=== PATIENT | male | born 1955 | race Caucasian/White ===

== ENCOUNTER 2016-09-28 01:47 | Emergency (ER) | payer OTHER ==
[~2016-09-28] VITALS: Ht 172.7 cm; Wt 85.0 kg
[~2016-09-28 01:47] MED LIST: CYCL-36 PO; IBUP-232 PO; LISI-363 PO; TRAM50 PO; Z.0.NO CURRENT MEDS
[2016-09-28 01:48] VITALS: BP 150/113; PULSE 74; RESP 22; TEMP 98.2; O2SAT 99
[2016-09-28] MEDS ORDERED: SODIUM CHLOR 0.9% 1000 ML INJ 1,000 ML IV ONE (01:52)
[2016-09-28] MEDS ORDERED: LISI-515 PO (01:54)
[2016-09-28 01:55] VITALS: O2SAT 100
[2016-09-28] MEDS ORDERED: SODIUM CHLORIDE 0.9% FLUSH 10 ML FLUSH IVF PRN (02:00)
[2016-09-28 02:22] LABS: AUTOMATED NEUTROPHIL # 6.8 TH/MM3 (1.8-7.7); BASOPHIL # 0.1 TH/MM3 (0-0.2); BASOPHIL % 0.7 % (0.0-2.0); EOSINOPHIL # 0.1 TH/MM3 (0-0.4); EOSINOPHIL % 0.9 % (0.0-4.0); HEMATOCRIT 43.2 % (39.0-51.0); HEMO FLAGS DIFF FINAL; LYMPH % 26.2 % (9.0-44.0); LYMPHOCYTE # 2.8 TH/MM3 (1.0-4.8); MEAN CELL VOLUME 93.1 FL (80.0-100.0); MEAN CORPUSCULAR HEMOGLOBIN 31.8 PG (27.0-34.0); MEAN CORPUSCULAR HGB CONC 34.2 % (32.0-36.0); MONO % 7.8 % (0.0-8.0); NEUT % 64.4 % (16.0-70.0); PLATELET COUNT 512 TH/MM3 (150-450); RED BLOOD COUNT 4.64 MIL/MM3 (4.50-5.90); RED CELL DISTRIBUTION WIDTH 14.5 % (11.6-17.2); WHITE BLOOD COUNT 10.6 TH/MM3 (4.0-11.0)
[2016-09-28 02:25] LABS: ALT (GPT) 21 U/L (12-78); ANION GAP 8 MEQ/L (5-15); APTT (PATIENT) 25.6 SEC (24.3-30.1); AST (GOT) 17 U/L (15-37); BICARBONATE 26.5 MEQ/L (21.0-32.0); BLOOD UREA NITROGEN 32 MG/DL (7-18); CHLORIDE 109 MEQ/L (98-107); GLOMERULAR FILTRATION RATE 31 ML/MIN (>89); INTERNATIONAL NORMALIZED RATIO 1.1 RATIO; MAGNESIUM 2.2 MG/DL (1.5-2.5); POTASSIUM 4.1 MEQ/L (3.5-5.1); PROTHROMBIN TIME - PATIENT 11.7 SEC (9.8-11.6); SODIUM (NA) 143 MEQ/L (136-145)
--- NOTE | 2016-09-28 02:27 | RADRPT ---
EXAM DATE/TIME: 09/28/2016 02:15 [place] COMPARISON: No previous studies available for comparison. INDICATIONS : Syncopal episode. MEDICAL HISTORY : Chronic obstructive pulmonary disease. SURGICAL HISTORY : None. ENCOUNTER: Initial ACUITY: 1 day PAIN SCORE: 0/10 LOCATION: Bilateral chest FINDINGS: A single view of the chest demonstrates the lungs to be symmetrically aerated without evidence of mas s, infiltrate or effusion. There is uncoiling and ectasia of the thoracic abdominal aorta. Heart size is normal. 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 Osseous structures are otherw ise intact CONCLUSION: 1. Tortuosity of the thoracic aorta. 2. Lungs are clear. 3. 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 Ashu Turcios MD on September 28, 2016 at 2:24 Board Certified Radiologist. This report was verified electronically.
[2016-09-28 02:29] LABS: ALKALINE PHOSPHATASE 53 U/L (45-117); CREATINE KINASE 138 U/L (39-308); TOTAL BILIRUBIN ADULT 0.4 MG/DL (0.2-1.0)
[2016-09-28 02:42] LABS: CKMB 1.6 NG/ML (0.5-3.6)
--- NOTE | 2016-09-28 03:01 | PD ---
HPI Chief Complaint: Syncope/Near-Syncope Time Seen by Provider: 02:25 Travel History International Travel<30 days: No Contact w/Intl Traveler<30days: No Traveled to known affect area: No History of Present Illness HPI Patient is a 60-year-old male who presents to emergency room after a near syncopal episode today. 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 Patient reports that he sat down on the ground as he felt lightheaded and dizzy. Reports that the last this had happened, he passed out and hit his head. Reports that he did not lose any consciousness tonight. Patient reports that he feels lightheaded and dizzy at this time, denies any headache. Patient reports that he has been working outside and has been drinking plenty of fluids, denies any chest pain or shortness of breath. Patient was given 500 mL of normal saline by EMS, reports that he is feeling better after normal saline was given to him. BG 108 by EMS. Patient with no abdominal pain, nausea or vomiting at this time. PFSH Past Medical History Arthritis: Yes Hiatal Hernia: Yes (REPAIRED) Hypertension: Yes Past Surgical History Abdominal Surgery: Yes (HIATAL HERNIA REP) Neurologic Surgery: Yes (ELBOW NERVE REP) Social History Alcohol Use: Yes Tobacco Use: Yes (1 PPD) Substance Use: No Allergies-Medications (Allergen,Severity, Reaction): Coded Allergies: No Known Allergies (Unverified , 09/28/16) Reported Meds & Prescriptions Reported Meds & Active Scripts Active Reported Pantoprazole (Pantoprazole Sodium) 40 Mg Tab 40 Mg PO DAILY Hydrochlorothiazide 25 Mg Tab 25 Mg PO DAILY Aspirin 81 Mg Chew 81 Mg CHEW DAILY Carvedilol 12.5 Mg Tab 12.5 Mg PO BID Amlodipine (Amlodipine Besylate) 10 Mg Tab 10 Mg PO DAILY Lisinopril 20 Mg Tab 20 Mg PO DAILY Review of Systems General / Constitutional: No: Fever Eyes: No: Visual changes HENT: Positive: Lightheadedness, No: Headaches Cardiovascular: No: Chest Pain or Discomfort Respiratory: No: Shortness of Breath Gastrointestinal: No: Nausea, Vomiting, Abdominal Pain Genitourinary: No: Dysuria Musculoskeletal: No: Pain Skin: No Rash Neurologic: Positive: Dizziness, No: Weakness Psychiatric: No: Depression Endocrine: No: Polydipsia Hematologic/Lymphatic: No: Easy Bruising Physical Exam Narrative GENERAL: No acute distress, nontoxic SKIN: Focused skin assessment warm/dry. HEAD: Atraumatic. Normocephalic. EYES: Pupils equal and round. No scleral icterus. No injection or drainage. ENT: No nasal bleeding or discharge. Mucous membranes pink and moist. NECK: Trachea midline. No JVD. CARDIOVASCULAR: Regular rate and rhythm. No murmur appreciated. RESPIRATORY: No accessory muscle use. Clear to auscultation. Breath sounds equal bilaterally. GASTROINTESTINAL: Abdomen soft, non-tender, nondistended. Hepatic and splenic margins not palpable. MUSCULOSKELETAL: No obvious deformities. No clubbing. No cyanosis. No edema. NEUROLOGICAL: Awake and alert. No obvious cranial nerve deficits. Motor grossly within normal limits. Normal speech. PSYCHIATRIC: Appropriate mood and affect; insight and judgment normal. Data Data Last Documented VS Vital Signs Date Time Temp Pulse Resp B/P Pulse Ox O2 Delivery O2 Flow Rate FiO2 09/28/16 03:42 84 18 130/99 95 Room Air 09/28/16 01:48 98.2 Orders Electrocardiogram (09/28/16 01:52) Complete Blood Count With Diff (09/28/16 01:52) Comprehensive Metabolic Panel (09/28/16 01:52) Magnesium (Mg) (09/28/16 01:52) B-Type Natriuretic Peptide (09/28/16 01:52) Ckmb (Isoenzyme) Profile (09/28/16 01:52) Troponin I (09/28/16 01:52) Act Partial Throm Time (Ptt) (09/28/16 01:52) Prothrombin Time / Inr (Pt) (09/28/16 01:52) Urinalysis - C+S If Indicated (09/28/16 01:52) Chest, Single Ap (09/28/16 01:52) Blood Glucose (09/28/16 01:52) Ecg Monitoring (09/28/16 01:52) Iv Access Insert/Monitor (09/28/16 01:52) Oximetry (09/28/16 01:52) Sodium Chloride 0.9% Flush (Ns Flush) (09/28/16 02:00) Sodium Chlor 0.9% 1000 Ml Inj (Ns 1000 M (09/28/16 01:52) CKMB (09/28/16 01:54) CKMB% (09/28/16 01:54) Labs Laboratory Tests Test 09/28/16 01:54 White Blood Count 10.6 TH/MM3 Red Blood Count 4.64 MIL/MM3 Hemoglobin 14.8 GM/DL Hematocrit 43.2 % Mean Corpuscular Volume 93.1 FL Mean Corpuscular Hemoglobin 31.8 PG Mean Corpuscular Hemoglobin 34.2 % Concent Red Cell Distribution Width 14.5 % Platelet Count 512 TH/MM3 Mean Platelet Volume 7.7 FL Neutrophils (%) (Auto) 64.4 % Lymphocytes (%) (Auto) 26.2 % Monocytes (%) (Auto) 7.8 % Eosinophils (%) (Auto) 0.9 % Basophils (%) (Auto) 0.7 % Neutrophils # (Auto) 6.8 TH/MM3 Lymphocytes # (Auto) 2.8 TH/MM3 Monocytes # (Auto) 0.8 TH/MM3 Eosinophils # (Auto) 0.1 TH/MM3 Basophils # (Auto) 0.1 TH/MM3 CBC Comment DIFF FINAL Differential Comment Prothrombin Time 11.7 SEC Prothromb Time International 1.1 RATIO Ratio Activated Partial 25.6 SEC Thromboplast Time Sodium Level 143 MEQ/L Potassium Level 4.1 MEQ/L Chloride Level 109 MEQ/L Carbon Dioxide Level 26.5 MEQ/L Anion Gap 8 MEQ/L Blood Urea Nitrogen 32 MG/DL Creatinine 2.21 MG/DL Estimat Glomerular Filtration 31 ML/MIN Rate Random Glucose 84 MG/DL Calcium Level 8.7 MG/DL Magnesium Level 2.2 MG/DL Total Bilirubin 0.4 MG/DL Aspartate Amino Transf 17 U/L (AST/SGOT) Alanine Aminotransferase 21 U/L (ALT/SGPT) Alkaline Phosphatase 53 U/L Total Creatine Kinase 138 U/L Creatine Kinase MB 1.6 NG/ML Troponin I LESS THAN 0.02 NG/ML B-Type Natriuretic Peptide 8 PG/ML Total Protein 6.7 GM/DL Albumin 3.7 GM/DL [facility] Medical Decision Making Medical Screen Exam Complete: Yes Emergency Medical Condition: Yes Interpretation(s) EKG at 0154: NSR at 71bpm, qt/qtc: 362/384, pvc's, no acute st or t wave changes Vital Signs Date Time Temp Pulse Resp B/P Pulse Ox O2 Delivery O2 Flow Rate FiO2 09/28/16 01:55 100 Room Air 09/28/16 01:48 98.2 74 22 150/113 99 Differential Diagnosis Differential includes arrhythmia, electrolyte abnormality, dehydration, ACS Narrative Course Patient is a 60-year-old male who presents to ER with c/o of near syncopal episode while at work today. Patient was present electronic device monitor upon arrival to emergency room. EKG was obtained. Plan to obtain lab work, x-ray of the chest, will give IV fluids and monitor patient. Vital Signs Date Time Temp Pulse Resp B/P Pulse Ox O2 Delivery O2 Flow Rate FiO2 09/28/16 03:42 84 18 130/99 95 Room Air 09/28/16 01:55 100 Room Air 09/28/16 01:48 98.2 74 22 150/113 99 Laboratory Tests Test 09/28/16 01:54 White Blood Count 10.6 TH/MM3 (4.0-11.0) Red Blood Count 4.64 MIL/MM3 (4.50-5.90) Hemoglobin 14.8 GM/DL (13.0-17.0) Hematocrit 43.2 % (39.0-51.0) Mean Corpuscular Volume 93.1 FL (80.0-100.0) Mean Corpuscular Hemoglobin 31.8 PG (27.0-34.0) Mean Corpuscular Hemoglobin 34.2 % Concent (32.0-36.0) Red Cell Distribution Width 14.5 % (11.6-17.2) Platelet Count 512 TH/MM3 (150-450) Mean Platelet Volume 7.7 FL (7.0-11.0) Neutrophils (%) (Auto) 64.4 % (16.0-70.0) Lymphocytes (%) (Auto) 26.2 % (9.0-44.0) Monocytes (%) (Auto) 7.8 % (0.0-8.0) Eosinophils (%) (Auto) 0.9 % (0.0-4.0) Basophils (%) (Auto) 0.7 % (0.0-2.0) Neutrophils # (Auto) 6.8 TH/MM3 (1.8-7.7) Lymphocytes # (Auto) 2.8 TH/MM3 (1.0-4.8) Monocytes # (Auto) 0.8 TH/MM3 (0-0.9) Eosinophils # (Auto) 0.1 TH/MM3 (0-0.4) Basophils # (Auto) 0.1 TH/MM3 (0-0.2) CBC Comment DIFF FINAL Differential Comment Prothrombin Time 11.7 SEC (9.8-11.6) Prothromb Time International 1.1 RATIO Ratio Activated Partial 25.6 SEC Thromboplast Time (24.3-30.1) Sodium Level 143 MEQ/L (136-145) Potassium Level 4.1 MEQ/L (3.5-5.1) Chloride Level 109 MEQ/L (98-107) Carbon Dioxide Level 26.5 MEQ/L (21.0-32.0) Anion Gap 8 MEQ/L (5-15) Blood Urea Nitrogen 32 MG/DL (7-18) Creatinine 2.21 MG/DL (0.60-1.30) Estimat Glomerular Filtration 31 ML/MIN (>89) Rate Random Glucose 84 MG/DL (74-106) Calcium Level 8.7 MG/DL (8.5-10.1) Magnesium Level 2.2 MG/DL (1.5-2.5) Total Bilirubin 0.4 MG/DL (0.2-1.0) Aspartate Amino Transf 17 U/L (15-37) (AST/SGOT) Alanine Aminotransferase 21 U/L (12-78) (ALT/SGPT) Alkaline Phosphatase 53 U/L (45-117) Total Creatine Kinase 138 U/L (39-308) Creatine Kinase MB 1.6 NG/ML (0.5-3.6) Troponin I LESS THAN 0.02 NG/ML (0.02-0.05) B-Type Natriuretic Peptide 8 PG/ML (0-100) Total Protein 6.7 GM/DL (6.4-8.2) Albumin 3.7 GM/DL (3.4-5.0) Patient reevaluated, patient feeling much better at this time. CBC within normal limits, BMP: BUN 32, creatinine 2.21, patient does have history of polycystic kidney disease, discussed need for him to drink plenty of fluids as patient is dehydrated with elevated bun/cr. Patient will follow-up with his primary care doctor as well as relocation services specialist, he'll bring copies of laboratories doctor's office. Patient will return to the emergency room as needed. Diagnosis Primary Impression: Near syncope Additional Impressions: Dehydration Renal insufficiency Patient Instructions: General Instructions Additional Instructions: Please drink plenty of fluids Please bring the copy of your lab work to your doctor's office for follow-up Return to emergency room if symptoms worsen or progress Return to the emergency room as needed Please follow-up with your primary care doctor as well as your relocation services specialist Disposition: 01 DISCHARGE HOME Condition: Stable Dora Ha DO Sep 28, 2016 03:01
[2016-09-28] MEDS ORDERED: CARV12.52 PO (03:08)
[2016-09-28] MEDS ORDERED: PANT40TA3 PO (03:08)
[2016-09-28] MEDS ORDERED: ASPI81CH CHEW (03:08)
[2016-09-28] MEDS ORDERED: AMLO10TA2 PO (03:08)
[2016-09-28] MEDS ORDERED: HYDR25TA5 PO (03:08)
[2016-09-28 03:42] VITALS: BP 130/99; PULSE 84; RESP 18; O2SAT 95
--- NOTE | 2016-09-28 16:04 | EKG ---
Date Performed: 09/28/2016 Time Performed: 01:54:08 PTAGE: 60 years EKG: Sinus rhythm WITH OCCASIONAL SUPRAVENTRICULAR PREMATURE COMPLEXES LEFT ANTERIOR FASCICULAR BLOCK ABNORMAL ECG NO PREVIOUS TRACING DOCTOR: Reji Hernandez Interpretating Date/Time 09/28/2016 16:02:02
== END 2016-09-28 04:16 | disposition home or self-care (01) ==
LOC: NEPC 01:47
DX: R55 Syncope and collapse (principal); E86.0 Dehydration; N28.9 Disorder of kidney and ureter, unspecified; I10 Essential (primary) hypertension; M19.90 Unspecified osteoarthritis, unspecified site
CPT/HCPCS: 71010; 80053; 82550; 82552; 83735; 83880; 84484; 85025; 85610; 85730; 93005; 96360; 99285; J7030